=== PATIENT | female | born 1960 | race Caucasian/White ===

== ENCOUNTER → 2016-11-07 | Outpatient (CLI) | payer MEDICAID ==
[~2016-11-07] MED LIST: CYCL10TA9 PO; DIAZ5TAB PO; DOCU100C37 PO; ESTR1TAB24 PO; FLUT1BLS IH; NAPR500T3 PO; NCT21TD TD; OXYC-465 PO; ROPI1TAB2 PO; RT-ALBUINH IH; TIOT18CA2 IH; VENL150C PO
--- OUTSIDE RECORDS SUMMARY | 2016-11-07 12:21 | XMS REPORT | Continuity of Care Document ---
Author Author [facility] Organization [facility] Address Unknown Phone Unavailable Care Team Providers Care Consumer Marketing Manager Name Role Phone JUDY MELTON MD PCP Insurance Providers Payer Name Policy Number Subscriber Name Relationship [facility] [id number] Marielena Aguiar 20 Self / Same As Patient Advance Directives Directive Response Recorded Date/Time Advance Directives No 02/14/16 8:37am Health Care Power of Deputy Bailiff No 02/14/16 8:37am Organ Donor No 02/14/16 8:37am Resuscitation Status Full Code 02/14/16 8:37am Problems No problem information available. Medications Current Home Medications Medication Dose Units Route Directions Days/Qty Instructions Start Date Venlafaxine Hcl 150 Mg 225 Mg Oral Daily 12/25/15 Diazepam 5 Mg 5 Mg Oral Twice A Day 12/25/15 Naproxen 500 Mg 500 Mg Oral Twice A Day 12/25/15 Tiotropium [place] [place] 1 Inh 1 Inh Inhalation Daily 12/25/15 Albuterol Sulfate 8.5 Gm 1-2 Puff Inhalation As Needed as needed for Shortness Of Breath 12/25/15 Nicotine 1 Each 21 Mg Transderm Daily 12/25/15 Cyclobenzaprine Hcl 10 Mg 10 Mg Oral Three Times A Day 12/25/15 Ropinirole Hcl 1 Mg 1 Mg Oral Bedtime 12/25/15 Social History Social History Problem Response Recorded Date/Time Alcohol Use Denies Use 02/14/2016 8:37am Recreational Drug Use Y SMOKES POT, HX OF IV DRUG USE - QUIT IN 2011 8:37am Recent Foreign Travel No 02/14/2016 8:37am Recent Infectious Disease Exposure No 02/14/2016 8:37am Hospitalization with Isolation Denies 02/14/2016 8:37am Sexually Transmitted Disease No 02/14/2016 8:37am HIV/AIDS No 02/14/2016 8:37am Smoking Status Current Everyday Smoker 02/14/2016 8:41am Do you dip or chew tobacco? No 01/01/2016 7:20am Query Response Start Date Stop Date Smoking Status Current Everyday Smoker Hospital Discharge Instructions No hospital discharge instructions. Plan of Care Discharge Date 02/14/16 9:43am Prescriptions See Medication Section Functional Status No functional status results. Allergies, Adverse Reactions, Alerts No known allergies. Immunizations No immunization records. Vital Signs Acute Vital Signs Vital Response Date/Time Pulse Rate (adult) 93 bpm (60 - 90) 02/14/2016 8:37am Respiratory Rate 16 bpm (12 - 24) 02/14/2016 8:37am O2 Sat by Pulse Oximetry 95 % (88 - 100) 02/14/2016 8:37am Blood Pressure 129/91 mm Hg 02/14/2016 8:37am Height (Feet) 5 feet 02/14/2016 8:37am Height (Inches) 1.00 inches 02/14/2016 8:37am Height (Calculated Centimeters) 154.949227 cm 02/14/2016 8:37am Weight (Pounds) 179 pounds 02/14/2016 8:37am Weight (Ounces) 4.0 oz 02/14/2016 8:37am Weight (Calculated Grams) 00118.433 gm 02/14/2016 8:37am Weight (Calculated Kilograms) 81.985201 kilograms 02/14/2016 8:37am Calculated BMI 29.78 02/14/2016 8:37am Results Laboratory Results Test Name Result Units Flags Reference Collection Date/Time Result Date/ Time Comments Acetaminophen Screen NEGATIVE NEGATIVE 02/14/2016 8:40am 02/14/2016 9 :17am APAP=ACETAMINOPHEN/PARACETAMOL Procedures No known history of procedures. Encounters Encounter Location Arrival/Admit Date Discharge/Depart Date Attending Provider Departed Clinic [facility] 02/14/16 8:28am 02/14/16 9: 43am RENE WALTER MD
--- NOTE | 2016-11-07 13:05 | Diagnostic Imaging Report ---
EXAMINATION: PA and lateral chest at 12:42 p.m. INDICATION: Cough, shortness of breath. COMPARISON: There are no prior studies available for comparison. FINDINGS: The heart size is within normal limits. The lungs are generally clear. There is no sign of failure, pneumonia, or pleural effusion. There does appear to be a small dense nodule in the right lung base. I suspect that this is a granuloma. If previous exams are available, they would be helpful for comparison. The mediastinum is not widened. There is an incompletely healed overriding fracture of the mid shaft of the right clavicle. There is no acute bony abnormality noted. IMPRESSION: 1. There is no evidence for an acute cardiopulmonary abnormality. 2. The small nodular density in the right lung base is most likely a benign process such as a granuloma. Recommendations as above. 3. There is an incompletely healed overriding fracture of the mid shaft of the right clavicle. Dictated by: Dictated on workstation # [id number]
== END ==
LOC: RAD 12:18
PROVIDERS: ATTEND Nurse Practitioner Family
DX: R06.00 Dyspnea, unspecified (principal); Z72.0 Tobacco use
CPT/HCPCS: 71020